=== PATIENT | female | born 1985 | race Caucasian/White ===

== ENCOUNTER 2022-10-04 08:48 | Emergency (ER) | payer OTHER ==
[~2022-10-04] VITALS: Ht 165.1 cm; Wt 63.5 kg
[2022-10-04] MEDS ORDERED: CLARITIN10 M1 PO (11:03)
[2022-10-04] MEDS ORDERED: BENADRYL ITCH103 ML TOP (11:03)
[2022-10-04] MEDS ORDERED: ANTI-ITCH28 G1 TOP (11:14)
== END 2022-10-04 11:40 | disposition home or self-care (01) ==
LOC: ER 08:48
DX: T14.8XXA Other injury of unspecified body region, initial encounter (principal); W57.XXXA Bitten or stung by nonvenomous insect and other nonvenomous arthropods, initial encounter; Y93.89 Activity, other specified; Y92.89 Other specified places as the place of occurrence of the external cause; Y99.9 Unspecified external cause status